=== PATIENT | male | born 1990 | race Asian ===

== ENCOUNTER 2017-12-02 09:10 | Emergency (ER) | payer OTHER ==
--- NOTE | 2017-12-02 11:08 | ED Physician Documentation ---
History of Present Illness - Stated complaint Stated Complaint: LEFT RIB PX - Chief complaint Chief Complaint: Ext Problem - Additonal information Additional information: hx from pt 27 male was working at [employer] and fell striking L ribs inc pain over weekend after his toddler hit the ribs now SOA as well no abd pain Review of Systems Cardiac: reports: Chest pain / pressure Respiratory: reports: Dyspnea GI: denies: Abdominal Pain Endocrine: denies: Easy bruising / bleeding PD PAST MEDICAL HISTORY - Present Medications Home Medications: Ambulatory Orders Medication Instructions Recorded Confirmed Ibuprofen [Motrin] 400 mg PO Q6H PRN #30 tablet 12/02/17 Lidocaine Patch 5% [Lidoderm Patch] 1 each TOP DAILY PRN #10 patch 12/02/17 - Allergies Allergies/Adverse Reactions: Allergies Allergy/AdvReac Type Severity Reaction Status Date / Time No Known Drug Allergies Allergy Verified 12/02/17 09:28 PD ED PE NORMAL - Vitals Vital signs reviewed: Yes - Cardiac Cardiac: RRR - Respiratory Respiratory: No respiratory distress, Clear bilaterally, Other (TTP low lateral to anterior left ribs s crepitus or bruising) - Abdomen Abdomen: Soft, Non tender, Other (no splenic TTP) - Neuro Neuro: Alert and oriented X 3 Results - Vitals Vitals: Vital Signs - 24 hr 12/02/17 12/02/17 09:24 12:53 Temperature 36.5 C 36.8 C Heart Rate 61 54 L Respiratory 16 16 Rate Blood Pressure 117/103 H 106/55 L O2 Saturation 98 100 Oxygen O2 Source Room air - Rads (name of study) ribs and chest Radiology: See rad report (no fx pneumo hemo) PD MEDICAL DECISION MAKING - Sepsis Event Vital Signs: Vital Signs - 24 hr 12/02/17 12/02/17 09:24 12:53 Temperature 36.5 C 36.8 C Heart Rate 61 54 L Respiratory 16 16 Rate Blood Pressure 117/103 H 106/55 L O2 Saturation 98 100 Oxygen O2 Source Room air Departure - Departure Disposition: 01 Home, Self Care Clinical Impression: Contusion, chest wall Qualifiers: Encounter type: initial encounter Laterality: left Qualified Code(s): S20.212A - Contusion of left front wall of thorax, initial encounter Condition: Good Instructions: ED Contusion Chest Wall Prescriptions: Ibuprofen [Motrin] 400 mg PO Q6H PRN #30 tablet PRN Reason: Pain Lidocaine Patch 5% [Lidoderm Patch] 1 each TOP DAILY PRN #10 patch PRN Reason: Pain Comments: The xray does not show any broken ribs or collapsed lungs Forms: Activity restrictions
[2017-12-02] MEDS: LIDOCAINE PATCH 5% TOP PRN (11:29)
--- NOTE | 2017-12-02 12:08 | XRAY Report ---
Procedure Date: 12/02/2017 Accession Number: [id number] / [id number] Procedure: XR - Ribs w/PA Chest LT CPT Code: FULL RESULT: EXAM: LEFT RIB RADIOGRAPHY EXAM DATE: 12/02/2017 11:53 AM. CLINICAL HISTORY: Fell on ribs. Pain , difficulty breathing COMPARISON: None. TECHNIQUE: 1 view of the chest and 2 views of the ribs. FINDINGS: Bones: Normal. No fracture or bone lesion. Lungs: No focal opacities. No pneumothorax. No pleural effusions. Mediastinum: Heart and mediastinal contours are unremarkable. Other: None. IMPRESSION: Normal chest and rib radiography. [facility]
[2017-12-02 12:54] VITALS: BP 106/55
== END 2017-12-02 13:12 | disposition home or self-care (01) ==
LOC: ED 09:10
DX: S20.212A Contusion of left front wall of thorax, initial encounter (principal); W01.10XA Fall on same level from slipping, tripping and stumbling with subsequent striking against unspecified object, initial encounter; Y93.89 Activity, other specified; Y92.62 Dock or shipyard as the place of occurrence of the external cause; Y99.0 Civilian activity done for income or pay
CPT/HCPCS: 71101; 99283; A9270